=== PATIENT | female | born 1945 | race Caucasian/White ===

== ENCOUNTER 2018-07-24 07:32 | Day surgery (SDC) | payer MEDICARE ==
[2018-07-24] MEDS ORDERED: Sodium Chloride 0.9% 10 ML Syringe FLUSH PRN (08:00)
[2018-07-24 09:50] VITALS: BP 159/75
--- NOTE | 2018-07-24 11:31 | OR ---
DATE OF PROCEDURE: 07/24/2018 POSTOPERATIVE CARE: Postoperative care will be provided mainly at the [address] [place] [address] [facility] in conjunction with [facility]. PREOPERATIVE DIAGNOSIS: Cataract, right eye. POSTOPERATIVE DIAGNOSIS: Cataract, right eye. PROCEDURE: Phacoemulsification with intraocular lens placement, right eye. ANESTHESIA: Topical and intracameral. ESTIMATED BLOOD LOSS: Minimal. COMPLICATIONS: None. PATHOLOGY SPECIMENS: None. SURGICAL FINDINGS: None. INDICATION FOR PROCEDURE: The patient is a 73-year-old female with history of a visually significant cataract in the right eye, which interfered with activities of daily living. This consisted of a nuclear sclerosis cataract. Following careful discussion of the risks, benefits and alternatives to cataract extraction with intraocular lens placement including blindness and , the patient elected to proceed, and informed, written consent was obtained prior to the procedure. DESCRIPTION OF THE PROCEDURE: The patient was previously identified, and a hollis placed above the right eye. All sources, including the patient, indicated that the right eye was the correct eye. The patient was subsequently taken to the operating room where standard monitors were applied. The patient was then prepped and draped in the usual sterile fashion for ophthalmic surgery. Attention was first directed at the 12 o'clock position where a paracentesis port was fashioned. Shugar solution followed by Viscoat was instilled into the eye. Attention was then directed to the 8:30 position where a triplanar incision was made in a near-clear manner using a keratome. A continuous capsulorrhexis was then made using a combination of the cystotome and Utrata forceps. Hydrodissection was achieved using a balanced salt solution, and the lens rotated nicely. Phacoemulsification was then done using a modified [id number] technique without complication. Phaco time was 6.72 CDE. The remaining cortex was removed using the irrigation/aspiration handpiece. Provisc was then instilled into the eye. A Technis lens, model [id number], at 22.0 Diopters was then placed in the capsular bag using an [place] injector. The remaining viscoelastic was removed using the irrigation/aspiration forceps. All wounds were then checked and found to be watertight. The lid speculum and drapes were removed. Maxitrol ointment was placed in the patient's right eye, and the eye was shielded. The patient tolerated the procedure well. The patient was instructed to follow up tomorrow. All needle and sponge counts were correct at the end of the procedure. There were no surgical findings. Leatha Hunt MD /[id number]
== END 2018-07-24 09:53 | disposition home or self-care (01) ==
LOC: JP.SDS 07:32
PROVIDERS: ATTEND Ophthalmology
DX: H25.11 Age-related nuclear cataract, right eye (principal); I10 Essential (primary) hypertension; Z88.0 Allergy status to penicillin; Z95.5 Presence of coronary angioplasty implant and graft
CPT/HCPCS: 66984; V2632

== ENCOUNTER 2018-09-04 07:28 | Day surgery (SDC) | payer MEDICARE ==
[2018-09-04 07:50] VITALS: PULSE 59
[2018-09-04] MEDS ORDERED: Sodium Chloride 0.9% 10 ML Syringe FLUSH PRN (08:30)
[2018-09-04 08:52] VITALS: BP 158/82
--- NOTE | 2018-09-04 11:20 | OR ---
DATE OF PROCEDURE: 09/04/2018 POSTOPERATIVE CARE: Postoperative care will be provided mainly at the [address] [place] [address] [facility] in conjunction with [facility]. PREOPERATIVE DIAGNOSIS: Cataract, left eye. POSTOPERATIVE DIAGNOSIS: Cataract, left eye. PROCEDURE: Phacoemulsification with intraocular lens placement, left eye. ANESTHESIA: Topical and intracameral. ESTIMATED BLOOD LOSS: Minimal. COMPLICATIONS: None. PATHOLOGY SPECIMENS: None. SURGICAL FINDINGS: None. INDICATION FOR PROCEDURE: The patient is a 73-year-old female with history of a visually significant cataract in the left eye, which interfered with activities of daily living. This consisted of a nuclear sclerosis cataract. Following careful discussion of the risks, benefits and alternatives to cataract extraction with intraocular lens placement including blindness and , the patient elected to proceed, and informed, written consent was obtained prior to the procedure. DESCRIPTION OF THE PROCEDURE: The patient was previously identified, and a hollis placed above the left eye. All sources, including the patient, indicated that the left eye was the correct eye. The patient was subsequently taken to the operating room where standard monitors were applied. The patient was then prepped and draped in the usual sterile fashion for ophthalmic surgery. Attention was first directed at the 12 o'clock position where a paracentesis port was fashioned. Shugar solution followed by Viscoat was instilled into the eye. Attention was then directed to the 8:30 position where a triplanar incision was made in a near-clear manner using a keratome. A continuous capsulorrhexis was then made using a combination of the cystotome and Utrata forceps. Hydrodissection was achieved using a balanced salt solution, and the lens rotated nicely. Phacoemulsification was then done using a modified ajpivv-[id number]-[id number] technique without complication. Phaco time was 7.28 CDE. The remaining cortex was removed using the irrigation/aspiration handpiece. Provisc was then instilled into the eye. A Technis lens, model [id number], at 22.5 Diopters was then placed in the capsular bag using an [place] injector. The remaining viscoelastic was removed using the irrigation/aspiration forceps. All wounds were then checked and found to be watertight. The lid speculum and drapes were removed. Maxitrol ointment was placed in the patient's left eye, and the eye was shielded. The patient tolerated the procedure well. The patient was instructed to follow up tomorrow. All needle and sponge counts were correct at the end of the procedure. There were no surgical findings. Leatha Hunt MD /[id number]
== END 2018-09-04 09:04 | disposition home or self-care (01) ==
LOC: JP.SDS 07:28
PROVIDERS: ATTEND Ophthalmology
DX: H26.9 Unspecified cataract (principal); I10 Essential (primary) hypertension; I25.10 Atherosclerotic heart disease of native coronary artery without angina pectoris; E66.9 Obesity, unspecified; Z68.36 Body mass index [BMI] 36.0-36.9, adult; Z88.0 Allergy status to penicillin; Z88.1 Allergy status to other antibiotic agents; Z88.8 Allergy status to other drugs, medicaments and biological substances
CPT/HCPCS: 66984; V2632

== ENCOUNTER 2021-05-06 15:25 | Emergency (ER) | payer MEDICARE ==
[2021-05-06 17:25] VITALS: PULSE 56
[2021-05-06 17:26] VITALS: BP 121/62
== END 2021-05-06 17:24 | disposition home or self-care (01) ==
LOC: JP.ED 15:25
DX: R10.11 Right upper quadrant pain (principal); I25.810 Atherosclerosis of coronary artery bypass graft(s) without angina pectoris; I10 Essential (primary) hypertension; E66.9 Obesity, unspecified; Z68.36 Body mass index [BMI] 36.0-36.9, adult; Z95.5 Presence of coronary angioplasty implant and graft; Z88.0 Allergy status to penicillin; Z88.8 Allergy status to other drugs, medicaments and biological substances; Z88.1 Allergy status to other antibiotic agents; Z79.82 Long term (current) use of aspirin; Z79.899 Other long term (current) drug therapy
CPT/HCPCS: 36415; 80048; 80076; 82550; 84484; 85025; 93005; 93010; 99283; 99284-25

== ENCOUNTER 2021-11-13 06:00 | Inpatient (IN) | payer MEDICARE ==
[~2021-11-13 06:00] MED LIST: Lactated Ringers 1,000 ML IV SCH; Nozin Nasal Sanitizer NASBOTH ONE; ceFAZolin 2 GM in Sodium Chloride 0.9% 50 ML IV ONE
[2021-11-13] MEDS ORDERED: Nozin Nasal Sanitizer NASBOTH SCH ×2 (06:30)
[2021-11-13] MEDS ORDERED: Lactated Ringers 1,000 ML IV SCH ×2 (06:30)
[2021-11-13] MEDS ORDERED: Bupivacaine 0.5% 50 ML MDV ONE (06:38)
[2021-11-13] MEDS ORDERED: Midazolam 1 MG/ML 2 ML SDV ONE (07:23)
[2021-11-13] MEDS ORDERED: fentaNYL 100 MCG/2 ML SDV ONE ×4 (07:23→10:01)
[2021-11-13] MEDS ORDERED: Propofol 200 MG/20 ML SDV ONE (07:23)
[2021-11-13] MEDS ORDERED: ceFAZolin 2 GM in Premix Bag 1 BAG IV SCH (07:45)
[2021-11-13] MEDS ORDERED: ceFAZolin 2 GM in Sodium Chloride 0.9% 50 ML IV ONE (07:45)
[2021-11-13] MEDS ORDERED: Lidocaine 2% 5 ML SDV ONE (08:31)
[2021-11-13] MEDS ORDERED: Rocuronium 50 MG/5 ML Vial ONE (08:37)
[2021-11-13] MEDS ORDERED: Succinylcholine 200 MG/10 ML MDV ONE (08:37)
[2021-11-13] MEDS ORDERED: Dexamethasone 4 MG/ML SDV ONE (08:47)
[2021-11-13] MEDS ORDERED: Ondansetron 4 MG/2 ML SDV ONE (08:47)
[2021-11-13] MEDS ORDERED: Lactated Ringers 1,000 ML ONE (08:53)
[2021-11-13] MEDS ORDERED: Dextrose 5%-0.45% NaCl 1,000 ML IV ONE ×2 (11:10→20:00)
[2021-11-13] MEDS ORDERED: Morphine 2 MG/ML SYRINGE IV ONE ×2 (11:28→15:27)
[2021-11-13] MEDS ORDERED: Acetaminophen/HYDROcodone 325-5 MG Tab PO ONE ×2 (13:00→21:28)
[2021-11-13] MEDS ORDERED: Ondansetron 4 MG/2 ML SDV IVPUSH ONE (14:00)
[2021-11-13] MEDS ORDERED: ceFAZolin 1 GM in Premix Bag 1 BAG IV ONE (16:00)
[2021-11-13] MEDS ORDERED: Acetaminophen/oxyCODONE 325-5 MG Tab PO ONE (17:04)
[2021-11-14] MEDS ORDERED: traMADol 50 MG Tab PO ONE (00:05)
[2021-11-14] MEDS ORDERED: ceFAZolin 1 GM in Premix Bag 1 BAG IV ONE ×2 (00:05→08:00)
[2021-11-14] MEDS ORDERED: Dextrose 5%-0.45% NaCl 1,000 ML IV ONE (03:50)
[2021-11-14] MEDS ORDERED: Acetaminophen/HYDROcodone 325-5 MG Tab PO ONE ×4 (03:50→17:00)
[2021-11-14] MEDS ORDERED: Oxybutynin 5 MG Tab ONE (09:00)
[2021-11-14] MEDS ORDERED: Metoprolol Succinate 50 MG Tab.ER ONE (09:00)
[2021-11-14] MEDS ORDERED: amLODIPine 5 MG Tab ONE (09:00)
[2021-11-14] MEDS ORDERED: Celecoxib 100 MG Cap ONE ×2 (09:00)
[2021-11-14] MEDS ORDERED: Lisinopril 20 MG Tab ONE (09:00)
[2021-11-15] MEDS ORDERED: Lisinopril 20 MG Tab ONE (09:00)
[2021-11-15] MEDS ORDERED: Metoprolol Succinate 50 MG Tab.ER ONE (09:00)
[2021-11-15] MEDS ORDERED: Oxybutynin 5 MG Tab ONE (09:00)
[2021-11-15] MEDS ORDERED: Celecoxib 100 MG Cap ONE ×2 (09:00)
[2021-11-15] MEDS ORDERED: amLODIPine 5 MG Tab ONE (09:00)
[2021-11-15] MEDS ORDERED: Acetaminophen/HYDROcodone 325-5 MG Tab PO ONE (11:45)
[2021-11-16] MEDS ORDERED: Metoprolol Succinate 50 MG Tab.ER ONE (09:00)
[2021-11-16] MEDS ORDERED: amLODIPine 5 MG Tab ONE (09:00)
[2021-11-16] MEDS ORDERED: Celecoxib 100 MG Cap ONE (09:00)
[2021-11-16] MEDS ORDERED: Oxybutynin 5 MG Tab ONE (09:00)
[2021-11-16] MEDS ORDERED: Lisinopril 20 MG Tab ONE (09:00)
[2021-12-08 08:50] LABS: ESTIMATED GFR 75 mL/min (>60)
== END 2021-11-16 13:45 | disposition home or self-care (01) | DRG 470 ==
LOC: JP.SDS 06:00 → JP.ZCENSUS 11-14 12:45 → JP.SDS 11-16 13:45
PROVIDERS: ADMIT Specialist; ATTEND Specialist
PROC: 0SRC0J9 Replacement of Right Knee Joint with Synthetic Substitute, Cemented, Open Approach (ICD-10-PCS; principal; 2021-11-13)
DX: M17.11 Unilateral primary osteoarthritis, right knee (principal); I10 Essential (primary) hypertension; I25.10 Atherosclerotic heart disease of native coronary artery without angina pectoris; Z88.0 Allergy status to penicillin; Z95.1 Presence of aortocoronary bypass graft
CPT/HCPCS: 36415; 73560-26-RT; 73560-RT; 80053; 85027; 97110-GP; 97116-GP; 97162-GP; 97165-GO; 97530-GP; 97535-GO; 97535-GP; A9270-GY; C1776; J0330; J0690; J1100; J2250; J2270; J2405; J2704; J3010; J3490; J7042; J7120

== ENCOUNTER 2022-10-21 05:57 | Emergency (ER) | payer MEDICARE ==
[2022-10-21 06:28] LABS: BASOPHILS ABSOLUTE AUTO 0.03 K/uL (0.00-0.10); BASOPHILS PERCENT AUTO 0.5 % (0.1-1.3); EOSINOPHILS ABSOLUTE AUTO 0.41 K/uL (0.00-0.40); EOSINOPHILS PERCENT AUTO 6.2 % (0.0-5.4); HEMATOCRIT 37.4 % (34.3-46.0); HEMOGLOBIN 12.4 g/dL (11.2-15.5); IMMATURE GRAN PERCENT AUTO 0.3 % (0.0-0.7); LYMPHOCYTES ABSOLUTE AUTO 1.55 K/uL (0.8-3.3); LYMPHOCYTES PERCENT AUTO 23.3 % (11.4-47.7); MEAN CORPUSCULAR HEMOGLOBIN 29.2 pg (31.6-35.5); MEAN CORPUSCULAR HGB CONC 33.2 g/dL (31.6-35.5); MEAN CORPUSCULAR VOLUME 88.2 fL (81.4-99.0); MONOCYTES PERCENT AUTO 10.5 % (3.3-12.6); NEUTROPHILS ABSOLUTE AUTO 3.93 K/uL (1.0-7.6); NEUTROPHILS PERCENT AUTO 59.2 % (40.0-78.1); PLATELET COUNT,PLT 193 K/uL (130-375); RED BLOOD CELL COUNT 4.24 M/uL (3.77-5.24); WHITE BLOOD CELL COUNT,WBC 6.6 K/uL (3.2-11.0)
[2022-10-21 06:30] LABS: IMMATURE GRAN ABSOLUTE AUTO 0.02 K/uL (0.00-0.23)
[2022-10-21 06:52] LABS: ANION GAP 8.6 mmol/L (5.0-14.0); CALCIUM 8.8 mg/dL (8.5-10.1); CREATININE 0.8 mg/dL (0.6-1.0); EST CRCL DRUG DOSING (CG) 40.96 mL/min; POTASSIUM,K 4.4 mmol/L (3.6-5.2); TROPONIN I HIGH SENSITIVITY 7.6 pg/mL (<=60.3)
[2022-10-21 09:09] VITALS: BP 131/60; PULSE 66
== END 2022-10-21 10:31 | disposition home or self-care (01) ==
LOC: JP.ED 05:57
DX: R07.89 Other chest pain (principal); I25.10 Atherosclerotic heart disease of native coronary artery without angina pectoris; I10 Essential (primary) hypertension; M19.90 Unspecified osteoarthritis, unspecified site; E66.9 Obesity, unspecified; Z88.0 Allergy status to penicillin; Z88.1 Allergy status to other antibiotic agents; Z88.8 Allergy status to other drugs, medicaments and biological substances; Z79.899 Other long term (current) drug therapy; Z79.82 Long term (current) use of aspirin; Z95.1 Presence of aortocoronary bypass graft; Z68.36 Body mass index [BMI] 36.0-36.9, adult
CPT/HCPCS: 36415; 80048; 84484; 85025; 99285

== ENCOUNTER 2024-06-20 15:58 | Emergency (ER) | payer MEDICARE ==
[2024-06-20 16:27] VITALS: BP 173/66; PULSE 57
== END 2024-06-20 17:18 | disposition home or self-care (01) ==
LOC: JP.ED 15:58
DX: K56.41 Fecal impaction (principal); I10 Essential (primary) hypertension; E78.00 Pure hypercholesterolemia, unspecified; M19.90 Unspecified osteoarthritis, unspecified site; Z88.1 Allergy status to other antibiotic agents; Z88.8 Allergy status to other drugs, medicaments and biological substances; Z79.82 Long term (current) use of aspirin; Z79.899 Other long term (current) drug therapy
CPT/HCPCS: 99282; 99283